=== PATIENT | male | born 1980 | race Caucasian/White ===

== ENCOUNTER 2020-05-04 16:12 | Day surgery (SDC) | payer MEDICARE, OTHER, MEDICAID ==
[~2020-05-04] VITALS: Ht 160 cm; Wt 57.1 kg
[~2020-05-04 16:12] MED LIST: ARIXTRA SC; ASPIR-LOW81 MG PO; ASPIRIN 32325 MG/TA1 PO; ASPIRIN 81M81 MG/TA2 PO; DOXYCYCLINE 10100 MG PO; LOPRESSOR 550 MG/TAB PO; LOPRESSOR50 MG PO; PLAVIX 75MG TAB75 MG PO; SYNTHROID0.05 MG/TA PO; TOPROL XL50 MG PO; TYLENOL 500MG500 MG PO
[2020-05-04] MEDS ORDERED: SINGULAIR 110 MG/TAB PO (16:36)
[2020-05-04] MEDS ORDERED: DITROPAN 5MG TAB5 MG PO (16:36)
[2020-05-04] MEDS ORDERED: PRIL40 PO (16:37)
[2020-05-04 16:49] LABS: BASO # 0.1 (0.0-0.2); BASO % 1.2 % (0.0-2.0); EOS % 0.7 % (0-4.0); GRAN # 2.7 (1.4-6.5); GRAN % 45.2 % (42.2-75.2); HEMATOCRIT 42.2 % (42.0-52.0); HEMOGLOBIN 13.8 g/dl (13.5-18.0); LYMPH # 2.6 (1.2-3.4); LYMPH % 43.5 % (20.0-51.0); MEAN CELL VOLUME 101 fl (80.0-100.0); MEAN CORPUSCULAR HEMOGLOBIN 33 pg (27.0-31.0); MEAN CORPUSCULAR HGB CONC 33 g/dl (33.0-37.0); MONO # 0.5 (0.1-0.6); MONO % 8.1 % (1.7-9.3); PLATELET COUNT 198 K/mm3 (130-400); REDCELL DISTRIBUTION WIDTH-CV 13.9 % (11.5-14.5)
[2020-05-04 16:54] VITALS: BP 116/80; PULSE 60
[2020-05-04 16:57] LABS: ALBUMIN 3.7 gm/dL (3.5-5.0); BILIRUBIN,TOTAL 0.6 mg/dL (0.0-1.0); CALCIUM 8.6 mg/dL (8.4-10.2); CREATININE, serum 0.89 (0.66-1.25); MAGNESIUM 2.3 mg/dL (1.6-2.3); POTASSIUM 4.2 mmol/L (3.4-5.0); TOTAL PROTEIN 7.3 gm/dL (6.4-8.2)
[2020-05-04 17:28] LABS: THYROID STIMULATING HORMONE 2.6 uIU/mL (0.465-4.680)
[2020-05-04 17:32] LABS: TROPONIN-I 0.038 ng/mL (0.000-0.035)
[2020-05-04 17:50] LABS: COLLECTION METHOD CLEAN CATCH
[2020-05-04 17:56] LABS: MUCOUS Present /lpf; PH 7 (5-8); SQUAMOUS EPITHELIAL None Seen /hpf; URINE APPEARANCE Clear; URINE BACTERIA None Seen /hpf; URINE BILIRUBIN Negative (NEGATIVE); URINE BLOOD Negative (NEGATIVE); URINE COLOR Yellow; URINE GLUCOSE Negative (NEGATIVE); URINE KETONE Negative (NEGATIVE); URINE LEUKOCYTE ESTERASE Negative (NEGATIVE); URINE NITRATE Negative (NEGATIVE); URINE PROTEIN(semi-quant) Negative (NEGATIVE); URINE RBC None Seen /hpf; URINE UROBILINOGEN Negative (NEGATIVE)
[2020-05-04] MEDS ORDERED: TOPROL XL 50MG50 MG PO (23:35)
[2020-05-05] VITALS (11 sets, daily range): BP systolic 91–129; BP diastolic 44–65; PULSE 55–93; TEMP 97.7–98
--- NOTE | 2020-05-05 00:15 | NUR ---
Pt Admission procedure completed and charted, roomair. Pt is non-verbal, sister is in bedside to help with communication. Pt has no N/V/D/ tingling, numbness, SOA, pain, open wounds over body and edema. Pt is settled on his bed, call light on reach. BP is in lower side. Bed alarm is on, no further needs at this time.
--- NOTE | 2020-05-05 06:05 | NUR ---
Pt had an uneventful night, pt slept through out the night. Meds provided as per OCT, tolerated well. Settled on bed, call light is reachable, bed alarm is on, no futher needs at this time.
[2020-05-05 07:49] LABS: ALBUMIN 3.3 gm/dL (3.5-5.0); BILIRUBIN,TOTAL 0.7 mg/dL (0.0-1.0); CALCIUM 8.2 mg/dL (8.4-10.2); CREATININE, serum 0.88 (0.66-1.25); POTASSIUM 3.5 mmol/L (3.4-5.0); TOTAL PROTEIN 6.6 gm/dL (6.4-8.2)
[2020-05-05 08:01] LABS: TROPONIN-I 0.068 ng/mL (0.000-0.035)
--- NOTE | 2020-05-05 08:57 | NUR ---
Initial visit; Patient along with familly member thanked Car Pincher for visiting and offering encouragement and God's blessings.
[2020-05-05 09:02] LABS: BASO # 0.1 (0.0-0.2); BASO % 1.2 % (0.0-2.0); EOS % 0.5 % (0-4.0); GRAN % 48.1 % (42.2-75.2); HEMATOCRIT 39.3 % (42.0-52.0); HEMOGLOBIN 12.7 g/dl (13.5-18.0); LYMPH # 1.8 (1.2-3.4); LYMPH % 41.8 % (20.0-51.0); MEAN CELL VOLUME 101 fl (80.0-100.0); MEAN CORPUSCULAR HEMOGLOBIN 33 pg (27.0-31.0); MEAN CORPUSCULAR HGB CONC 32 g/dl (33.0-37.0); MEAN PLATELET VOLUME 11.9 fl (7.4-10.4); MONO # 0.3 (0.1-0.6); MONO % 7.2 % (1.7-9.3); PLATELET COUNT 101 K/mm3 (130-400); RED BLOOD COUNT 3.91 M/mm3 (4.20-5.60); REDCELL DISTRIBUTION WIDTH-CV 14.2 % (11.5-14.5)
--- NOTE | 2020-05-05 09:28 | NUR ---
Cad Drafter attended clinical rounds with the team. The patient's sister was present. Shayne with OT met with the patient directly after rounds.
--- NOTE | 2020-05-05 10:48 | NUR ---
Pt assessment completed and charted. Pt laying in bed, medications administered per mar. Pt sister at bedside, pt nonverbal, occasional yes/no or nods. Sister is his caregiver and able to provide answers to questions and assist w/ cares. Pt is alert, partially oriented. LAC IV w/ IVF infusing w/o complications. LS cta, BS active, heart RRR. Pt doesn't appear to be in distress. Pt on room air, breathing is even and unlabored. mild 1+ edema noted to BLE. Pt ambulated w/ this nurse and OT/PT, did well. No further needs at this time. Awaiting cardio consult.
[2020-05-05] MEDS ORDERED: PLAVIX 75MG TAB75 MG PO (12:07)
[2020-05-05] MEDS ORDERED: LIPITOR 40MG TA40 MG PO (12:07)
[2020-05-05] MEDS ORDERED: ASPIRIN 81M81 MG/TA2 PO (12:07)
--- NOTE | 2020-05-05 14:12 | NUR ---
Pt down for lexiscan at this time.
[2020-05-05] MEDS ORDERED: AMOXICILLIN 8751 TAB PO (16:25)
--- NOTE | 2020-05-05 16:43 | NUR ---
Pt back from lexiscan, pt alert, tolerated well, sister at bedside. Vehicle Safety Inspector in to see pt and family, lexiscan normal. Hospitalist aware of pt results, pt to discharge tonight. Swallow study being completed prior to discharge. Pt tolerated liquids well after lexiscan.
--- NOTE | 2020-05-05 17:59 | NUR ---
Pt discharge instructions discussed and reviewed w/ patient and sister who verbalized understanding. All questions answered. LAC IV dc'd w/o catheter tip intact. No further needs expressed. Pt escorted out via wc by RUBÉN Coats.
== END 2020-05-05 18:03 | disposition home or self-care (01) ==
LOC: COL.ER 16:12 → MEDICAL 21:17 → SDCO 21:17 → MEDICAL 05-05 18:03
PROVIDERS: Emergency Medicine; Nurse Practitioner Family; Student in an Organized Health Care Education/Training Program
DX: I50.1 Left ventricular failure, unspecified (principal); I42.2 Other hypertrophic cardiomyopathy; I95.9 Hypotension, unspecified; J18.1 Lobar pneumonia, unspecified organism; Q90.9 Down syndrome, unspecified; E03.9 Hypothyroidism, unspecified; N32.81 Overactive bladder; R53.81 Other malaise; R63.4 Abnormal weight loss; Z11.59 Encounter for screening for other viral diseases
CPT/HCPCS: 99223-AI; 99232-AI; 99239; A9500; J2543; J2785; J7030; Q9967

== ENCOUNTER 2021-02-03 14:24 | Day surgery (SDC) | payer MEDICARE, OTHER, MEDICAID ==
[~2021-02-03] VITALS: Ht 160.1 cm; Wt 58.5 kg
[~2021-02-03 14:24] MED LIST changes: +AMOXICILLIN 8751 TAB PO; +DITROPAN 5MG TAB5 MG PO; +LIPITOR 40MG TA40 MG PO; +PRIL40 PO; +SINGULAIR 110 MG/TAB PO; +TOPROL XL 50MG50 MG PO
[2021-02-03] MEDS ORDERED: TOPROL XL 25MG25 MG PO (15:04)
[2021-02-03] MEDS ORDERED: PROTONIX 40MG T40 MG PO (15:05)
[2021-02-03 15:47] VITALS: BP 86/40; PULSE 58; TEMP 97.5
--- NOTE | 2021-02-03 16:11 | NUR ---
Pt arrived to the unit around 1500 with his sister. His sister is DPOA and he lives with her. Pt is non verbal but does understand when given instructions. Pt's sister, Magaly, very emotional over her brother, appears to have rn managed care fatigue. Pt is very pleasent
[2021-02-04 05:06] VITALS: BP 94/55; PULSE 67; TEMP 97.8
--- NOTE | 2021-02-04 05:59 | NUR ---
PATIENT ALERT, NONVERBAL. DID BOWEL PRE LAST NIGHT. MULTIPLE CLEAR LIQUID STOOL OVERNIGHT. NEW IV INSERTED TO LFA. IVF NS@30ML/HR STARTED. PATIENT OOB WITH ONE ASSIST. PLAN FOR COLONOSCOPY TODAY. WILL CONTINUE TO MONITOR.
[2021-02-04 08:17] VITALS: BP 92/61; PULSE 69
[2021-02-04] MEDS ORDERED: IMODIUM 2MG CAPS2 MG PO (08:49)
--- NOTE | 2021-02-04 09:30 | NUR ---
Patient and his sister ready to discharge home. Sister is patient primary director of career resources. Patient has done well post op colonoscopy. Hositalist rounded and discharge orders obtained. Patient showered. Iv DC, Iv really bothered patient & he wanted it out. He tolerated a gatorade & breakfast sandwich like "m[employer]". no nausea issues. Patient answers yes & no questions, but mostly nonverbal. Patient wheeled out with all belongings, His sister taking him home. All discharge paper work reviewed with sister, she is aware of new script for immodium faxed to pharmacy. She is also aware of follow up appt & thankful to have appt made. Patient sister denies questions or concerns, just ready to go home.
--- NOTE | 2021-02-04 10:20 | NUR ---
Initial visit; Patient and family member thanked Automation Technician for offering prayer and God's blessings following his colonoscopy.
== END 2021-02-04 09:30 | disposition home or self-care (01) ==
LOC: SURG 14:24 → SDCO 14:24 → SURG 14:25 → SDCO 02-04 07:00
DX: K52.832 Lymphocytic colitis (principal); K64.0 First degree hemorrhoids; N32.81 Overactive bladder; I10 Essential (primary) hypertension; J30.9 Allergic rhinitis, unspecified; K21.9 Gastro-esophageal reflux disease without esophagitis; E03.9 Hypothyroidism, unspecified; D69.6 Thrombocytopenia, unspecified; R03.0 Elevated blood-pressure reading, without diagnosis of hypertension; Z79.890 Hormone replacement therapy; Z79.899 Other long term (current) drug therapy; Z87.798 Personal history of other (corrected) congenital malformations
CPT/HCPCS: OP; J2704; J7030

== ENCOUNTER 2022-10-04 05:19 | Day surgery (SDC) | payer MEDICARE, OTHER, MEDICAID ==
[~2022-10-04] VITALS: Ht 162.6 cm; Wt 56.7 kg
[2022-10-04] VITALS (8 sets, daily range): BP systolic 78–101; BP diastolic 48–80; PULSE 57–84; TEMP 97.5–97.8
[~2022-10-04 05:19] MED LIST changes: +IMODIUM 2MG CAPS2 MG PO; +PROTONIX 40MG T40 MG PO; +TOPROL XL 25MG25 MG PO
[2022-10-04] MEDS ORDERED: LEXAPRO 10MG10 MG PO (07:22)
[2022-10-04] MEDS ORDERED: RISPERDAL 1M1 MG/TAB PO (07:23)
[2022-10-04] MEDS ORDERED: NORCO 325 MG-51 TAB PO (08:54)
--- NOTE | 2022-10-04 09:20 | NUR ---
0920 PATIENT RETURNS TO ROOM 8 VIA CART. PATIENT SISTER/CAREGIVER IS IN ROOM. PATIENT IS ALERT AND ORIENTED AND DOES NOT APPEAR TO BE IN ANY KIND OF DISTRESS. RESPIRATIONS EVEN AND UNLABORED. VITAL SIGNS OBTAINED. INCISION TO RIGHT LOWER ABDOMEN IS HELD TOGETHER WITH GLUE AND IS CDI. 0925 GAVE PATIENT A BLUEBERRY MUFFIN AND SOME WATER. NO DIFFICULTIES SWALLOWING. NO N/V. 0930 PATIENT WAS PULLING AT IV SITE ON RIGHT HAND. THIS NURSE DISCONTINUED IV WITH NO DIFFICULTIES. 1000 PATIENT SEEMED TO BECOME A LITTLE RESTLESS. THIS NURSE GAVE PRN NORCO PO AND GAVE EDUCATION TO CAREGIVER ABOUT MEDICATION. 1010 THIS NURSE WENT OVER DISCHARGE INSTRUCTIONS WITH CAREGIVER. ALL QUESTIONS AND CONCERNS DISCUSSED. CAREGIVER VERBALIZED UNDERSTANDING. 1014 PATIENT DRESSES SELF WITH ASSISTANCE OF CAREGIVER. WENT TO THE RESTROOM AND VOIDED. 1030 PATIENT DISCHARGES FROM UNIT VIA WHEELCHAIR WITH BELONGINGS.
== END 2022-10-04 10:30 | disposition home or self-care (01) ==
LOC: SDCO 05:19
DX: K40.90 Unilateral inguinal hernia, without obstruction or gangrene, not specified as recurrent (principal); Q90.9 Down syndrome, unspecified; I42.2 Other hypertrophic cardiomyopathy
CPT/HCPCS: C1781; J0690; J1100; J1885; J2370; J2405; J2704; J3010; J7120

== ENCOUNTER 2024-05-21 11:48 | Emergency (ER) | payer MEDICARE, OTHER, MEDICAID ==
[~2024-05-21] VITALS: Wt 56.4 kg
[~2024-05-21 11:48] MED LIST changes: +LEXAPRO 10MG10 MG PO; +NORCO 325 MG-51 TAB PO; +RISPERDAL 1M1 MG/TAB PO
[2024-05-21 11:51] VITALS: TEMP 98.6
[2024-05-21 12:18] LABS: BASO # 0.1 K/mm3 (0.0-0.2); BASO % 0.4 % (0.0-2.0); GRAN # 9.9 K/mm3 (1.4-6.5); GRAN % 84.9 % (42.2-75.2); HEMATOCRIT 37.1 % (42.0-52.0); HEMOGLOBIN 12.5 g/dl (13.5-18.0); LYMPH # 1.1 K/mm3 (1.2-3.4); LYMPH % 9.2 % (20.0-51.0); MEAN CELL VOLUME 104 fl (80.0-100.0); MEAN CORPUSCULAR HEMOGLOBIN 35 pg (27-31); MEAN CORPUSCULAR HGB CONC 34 g/dl (33.0-37.0); MEAN PLATELET VOLUME 12.7 fl (7.4-10.4); MONO # 0.5 K/mm3 (0.1-0.6); MONO % 4.5 % (1.7-9.3); PLATELET COUNT 95 K/mm3 (130-400); RED BLOOD COUNT 3.57 M/mm3 (4.20-5.60)
[2024-05-21 12:25] LABS: INR 1.4 (0.8-3.0); PROTHROMBIN TIME 15.6 SECONDS (9.7-12.8)
[2024-05-21 12:28] LABS: PARTIAL THROMBOPLASTIN TIME 29.8 SECONDS (26.0-37.0)
[2024-05-21 12:36] LABS: ALBUMIN 3.4 g/dL (3.5-5.0); BILIRUBIN,TOTAL 0.8 mg/dL (0.2-1.2); CALCIUM 8.5 mg/dL (8.4-10.2); CREATININE, serum 0.94 mg/dL (0.72-1.25); POTASSIUM 3.3 mEq/L (3.5-4.5); TOTAL PROTEIN 6.1 g/dl (6.2-8.1)
--- NOTE | 2024-05-21 15:09 | NUR ---
LOVE received call from DANIEL Daley stating that patient's sister needs visit for resources. Chart reviewed. LOVE and LOVE Morales met with patient's sister in room. Patient eating crackers and peanut butter during visit. Sister states that patient lives with her and her and family. Sister, Magaly Thornton ([phone]) is patient's guardian. Maikol Thornton, brother in law ([phone]) is also contact. Patient sees Dr. Mosquera as his PCP and uses [facility]. Patient uses no DME and is independent. Sister states patient fell last night when he got out of bed to get cookies resulting in pelvic fracture. Patient is covered by Medicare A/B, [employer] and [place] Medicaid. Sister reports patient is a Tier 1 and qualifies for caregivers for approximately 80 hours. Patient has a caregiver on Sunday, sunday and from 8-11 and another one from 2-7. LOVE discussed sister calling PCP office to request Home Health services to include PT/OT, RN and bath aide. Also encouraged sister to call patient's Lisa senior case manager to request in home caregiving to be arranged for patient due to him already being approved for hours. Sister tearful and grateful for assistance.
[2024-05-21] MEDS ORDERED: WALKER MC (16:11)
[2024-05-21] MEDS ORDERED: NORCO 325 MG-51 TAB PO (16:11)
[2024-05-21 16:47] VITALS: BP 96/67; PULSE 63
== END 2024-05-21 16:51 | disposition home or self-care (01) ==
LOC: COL.ER 11:48
PROVIDERS: Emergency Medicine
DX: S32.601A Unspecified fracture of right ischium, initial encounter for closed fracture (principal); Q90.9 Down syndrome, unspecified; W10.9XXA Fall (on) (from) unspecified stairs and steps, initial encounter

== ENCOUNTER → 2024-06-02 | Outpatient (CLI) | payer MEDICARE, OTHER, MEDICAID ==
[~2024-06-02] MED LIST changes: +WALKER MC
== END ==
LOC: COL.LAB 17:50
DX: R07.89 Other chest pain (principal); R06.02 Shortness of breath